=== PATIENT | male | born 1970 | race Caucasian/White ===

== ENCOUNTER 2020-07-29 09:56 | Outpatient (REF) | payer OTHER, SELFPAY | END 2020-07-29 09:57 | disposition home or self-care (01) | LOC: HO.LAB 09:56 | PROVIDERS: Visit Provider Internal Medicine | DX: Z20.828 Contact with and (suspected) exposure to other viral communicable diseases (principal) | CPT/HCPCS: C9803; U0003 ==

== ENCOUNTER 2020-08-17 13:01 | Outpatient (REF) | payer OTHER, SELFPAY | END 2020-08-17 13:02 | disposition home or self-care (01) | LOC: HO.LAB 13:01 | PROVIDERS: Visit Provider Internal Medicine | DX: Z20.828 Contact with and (suspected) exposure to other viral communicable diseases (principal) | CPT/HCPCS: 36415; C9803; U0003 ==

== ENCOUNTER 2020-08-31 09:58 | Outpatient (REF) | payer OTHER, SELFPAY | END 2020-08-31 09:59 | disposition home or self-care (01) | LOC: HO.LAB 09:58 | PROVIDERS: PCP Internal Medicine Geriatric Medicine; Visit Provider Internal Medicine | DX: Z20.822 Contact with and (suspected) exposure to COVID-19 (principal) | CPT/HCPCS: 36415; C9803; U0003 ==

== ENCOUNTER 2020-09-15 16:08 | Outpatient (REF) | payer OTHER, SELFPAY | END 2020-09-15 16:09 | disposition home or self-care (01) | LOC: HO.LAB 16:08 | PROVIDERS: Visit Provider Internal Medicine | DX: Z20.822 Contact with and (suspected) exposure to COVID-19 (principal) | CPT/HCPCS: 36415; C9803; U0003; U0005 ==

== ENCOUNTER 2020-09-28 08:19 | Outpatient (REF) | payer OTHER, SELFPAY | END 2020-09-28 08:20 | disposition home or self-care (01) | LOC: HO.LAB 08:19 | PROVIDERS: Visit Provider Internal Medicine | DX: Z20.822 Contact with and (suspected) exposure to COVID-19 (principal) | CPT/HCPCS: 36415; C9803; U0003; U0005 ==

== ENCOUNTER 2021-09-15 08:09 | Outpatient (REF) | payer MEDICAID, SELFPAY ==
--- NOTE | ~2021-09-15 | XR_ITS ---
EXAMINATION: XR SHOULDER, LEFT CLINICAL INFORMATION: Left shoulder pain COMPARISON: None TECHNIQUE: Left shoulder is imaged in 4 views. FINDINGS: There is no fracture or dislocation or destructive process. The glenohumeral joint appears normal. The acromioclavicular alignment is normal. There are no visible rotator cuff calcifications. XR/XR shoulder LT min 2V IMPRESSION: Unremarkable left shoulder.
== END 2021-09-15 08:10 | disposition home or self-care (01) ==
LOC: HO.XRAY 08:09
PROVIDERS: Absent Provider Internal Medicine Geriatric Medicine; PCP Internal Medicine Geriatric Medicine; Visit Provider Nurse Practitioner
DX: M25.512 Pain in left shoulder (principal)
CPT/HCPCS: 73030

== ENCOUNTER 2021-12-21 09:14 | Outpatient (REF) | payer MEDICAID, SELFPAY ==
[2021-12-21 10:49] LABS: MANUAL DIFF FLAG NO
[2021-12-21 10:59] LABS: Basophils Absolute Auto 0.1 X10*3/uL (0.0-0.2); Basophils Percent Auto 1.2 % (0-2); Eosinophils Absolute Auto 0.2 X10*3/uL (0.0-0.4); Eosinophils Percent Auto 2.4 % (0-4); Hematocrit 40.4 % (42.0-52.0); Hemoglobin 13.4 g/dl (14.0-18.0); Imm Gran Abs Auto 0.02 X10*3/uL (0.00-0.03); Imm Gran Pct Auto 0.3 % (0.0-0.4); Lymphocytes Absolute Auto 1.3 X10*3/uL (1.2-4.9); Lymphocytes Percent Auto 19.1 % (20-40); Mean Corpuscular HGB Conc 33.2 g/dl (31.0-36.0); Mean Corpuscular Hemoglobin 28.7 pg (27.0-33.0); Mean Corpuscular Volume 86.5 fL (80.0-98.0); Mean Platelet Volume 9.1 fL (9.4-12.4); Monocytes Absolute Auto 0.6 X10*3/uL (0.1-1.2); Monocytes Percent Auto 8.2 % (2-11); Neutrophils Absolute Auto 4.6 x10*3/uL (2.0-8.3); Neutrophils Percent Auto 68.8 % (45-73); Platelet Count 266 X10*3/uL (160-400); Red Blood Count 4.67 X10*6/uL (4.60-5.80); Red Cell Distribution Width 12.1 % (11.0-16.0); White Blood Count 6.7 X10*3/uL (4.8-10.8)
[2021-12-21 11:20] LABS: Alanine Aminotransferase 57 U/L (0-40); Albumin Level 4.5 g/dL (3.5-5.0); Alkaline Phosphatase 51 U/L (39-117); Anion Gap 11 (12-20); Aspartate Amino Transferase 58 U/L (5-37); Bilirubin Total 1.1 mg/dL (0.0-1.0); Blood Urea Nitrogen 15 mg/dL (9-16); Carbon Dioxide 26 mmol/L (22-29); Chloride 104 mmol/L (96-108); Estimated Glomerular Filt Rate > 60; Glucose Random 112 mg/dL (60-115); Sodium 137 mmol/L (135-145); Total Protein 7.5 g/dL (6.5-8.0)
== END 2021-12-21 09:15 | disposition home or self-care (01) ==
LOC: HO.LAB 09:14
PROVIDERS: PCP Internal Medicine Geriatric Medicine; Referring Provider Internal Medicine Geriatric Medicine; Visit Provider Nurse Practitioner
DX: Z01.818 Encounter for other preprocedural examination (principal)
CPT/HCPCS: 36415; 80053; 85025; 99202

== ENCOUNTER → 2022-03-25 15:18 | Outpatient (REF) | payer MEDICAID, SELFPAY | LOC: HO.CARD 15:18 | PROVIDERS: Visit Provider Internal Medicine | DX: R00.0 Tachycardia, unspecified (principal); R00.2 Palpitations; I10 Essential (primary) hypertension; E78.5 Hyperlipidemia, unspecified; Z79.899 Other long term (current) drug therapy | CPT/HCPCS: 93005; 99202 ==

== ENCOUNTER → 2022-05-10 10:28 | Outpatient (REF) | payer MEDICAID, SELFPAY ==
--- NOTE | 2022-05-10 10:30 | HM_ITS ---
* Total monitoring time 3 days. * Underlying rhythm is sinus. Average ventricular rate 72/Min. Range 44 to 121/Min. * No atrial fibrillation or flutter or AV blocks or pauses. * Very rare supraventricular and ventricular ectopy with minimal burden. * No patient diary. MTDD
--- NOTE | 2022-05-10 10:30 | CA_ITS ---
Transthoracic Echocardiogram Patient (Last, First, Middle): Stephon Landry, Gender: Male Date of : 1970 Age: 51 Procedure Date: 05/10/2022 Procedure Type: Transthoracic Echocardiogram Location: OP Height: 190.5 cm Weight: 95.26 kg BSA: 2.24 m2 Heart Rate: 74 bpm BP: 135 / 90 mmHg Double Reamer Operator: NAOMY Referring MD: Fazal Campbell MD Symptoms: R00.0 - Tachycardia, unspecified Study Quality: Adequate ECG Rhythm: Sinus Conclusions: - Normal left ventricular size and systolic function. There is mildly increased left ventricular wall thickness. The visually estimated ejection fraction is between 55-60%. - Diastolic function is normal for age. - Normal right ventricular cavity size and systolic function. Findings Left Ventricle Normal left ventricular size and systolic function. There is mildly increased left ventricular wall thickness. The visually estimated ejection fraction is between 55-60%. There is no evidence of regional wall motion abnormalities. Diastolic function is normal for age. Right Ventricle Normal right ventricular cavity size and systolic function. Atria Both atria are normal in size. Aortic Valve Normal aortic valve structure and function. There is no aortic valve stenosis. There is no aortic valve regurgitation. Mitral Valve There is mild mitral annular calcification. There is no mitral valve regurgitation. There is no mitral valve stenosis. Pulmonic Valve Normal pulmonic valve structure and function. There is trace pulmonic valve regurgitation. Tricuspid Valve Normal tricuspid valve structure and function. There is no tricuspid valve regurgitation. Normal right atrial pressure. There is no evidence of pulmonary hypertension. Great Vessels All visible segments of the aorta are normal in size. The visualized portions of the pulmonary artery and branches are normal. Venous The inferior vena cava is normal in size and collapses greater than 50% with inspiration. Pericardium/Pleural Normal pericardial structure. There is no evidence of pericardial effusion. Prior Study Comparison No prior study available for comparison. Measurements 2D Linear Measurements IVSd: 1.23 0.6-0.9/0.6-1.0 cm LVIDd: 4.44 3.9-5.3/4.2-5.9 cm LVIDd Index: 1.98 2.4-3.2/2.2-3.1 cm/m2 LVIDs: 3.35 2.0-3.6 cm LVPWd: 1.14 0.7-1.1 cm LA Diam: 3.70 2.7-3.8/3.0-4.0 cm LAIDs Index: 1.65 1.5-2.3 cm/m2 LV Mass: 237.42 67-162/88-224 g LV Mass Index: 105.99 43-95/49-115 g/m2 LVOT Diam: 2.30 3.0+(-)1.3 cm 2D Systolic Function EF 4C: 59.90 >55% EF 2C: 52.90 >55% EF BiP: 56.70 >55% Mitral Valve MV Pk E: 0.74 MV PK A: 0.78 MV Decel Time: 229.00 E/A: 0.90 E'Lateral: 12.50 E'Medial: 7.51 E/E' Med: 9.80 E/E' Lat: 5.90 PHT: 67.00 MVA PHT: 3.28 Decel [place]: 3.21 Aortic Valve AoV Pk Logan: 1.17 AoV Mn Logan: 0.83 AoV VTI: 0.22 AoV Pk Grad: 5.00 Aov Mn Grad: 3.00 STEVE Cont.VTI: 3.94 LVOT LVOT Pk Logan: 1.23 LVOT Mn Logan: 0.78 LVOT VTI: 0.21 LVOT Pk Grad: 6.00 LVOT Mn Grad: 3.00 LVOT Diam: 2.30 LVOT Area: 4.15 Diastolic Function MV Pk E: 0.74 MV Pk A: 0.78 E/A: 0.90 E'Medial: 7.51 E/E' Med: 9.80 E' Laterial: 12.50 E/E' Lat: 5.90 Right Ventricle TAPSE (mm): 19.40 TVS' Logan: 11.70 Tricuspid Valve TR Pk Logan: 1.89 TR Pk Grad: 14.00 RA Press: 3.00 RVSP: 17.00 Great Vessels Aorta Sinus of Valsalva: 3.60 2.0-3.5 cm Ao Asc: 3.30 2.1-3.4 cm Pulmonary Valve PV Pk Logan: 1.11 Peak PV Grad: 5.00 Updated in Other Vendor System with Status of Final Yaya Kumar MD electronically signed on 05/10/2022 8:06:29 PM with status of Final
== END ==
LOC: HO.CARD 10:28
PROVIDERS: Visit Provider Internal Medicine
DX: R00.0 Tachycardia, unspecified (principal); R00.2 Palpitations
CPT/HCPCS: 93242; 93306

== ENCOUNTER → 2022-07-03 14:53 | Outpatient (BNVA) | payer MEDICAID, SELFPAY | PROVIDERS: PCP Internal Medicine Geriatric Medicine; Referring Provider Internal Medicine Geriatric Medicine; Visit Provider Nurse Practitioner Family | DX: R00.2 Palpitations (principal); R00.0 Tachycardia, unspecified | CPT/HCPCS: 99212 ==

== ENCOUNTER 2023-06-06 08:20 | Outpatient (REF) | payer MEDICAID, SELFPAY ==
[2023-06-06 12:13] LABS: Alanine Aminotransferase 40 U/L (0-40); Albumin Level 4.2 g/dL (3.5-5.0); Alkaline Phosphatase 44 U/L (39-117); Anion Gap 13 (12-20); Aspartate Amino Transferase 32 U/L (5-37); Bilirubin Total 0.8 mg/dL (0.0-1.0); Blood Urea Nitrogen 21 mg/dL (9-16); Calcium 9.3 mg/dL (8.4-10.2); Carbon Dioxide 25 mmol/L (22-29); Chloride 104 mmol/L (96-108); Cholesterol 231 mg/dL (<200); Estimated Glomerular Filt Rate > 60; Glucose Random 105 mg/dL (60-115); HDL Cholesterol 48 mg/dL (>40); LDL Cholesterol Calculated 154 mg/dL (<100); Potassium 3.8 mmol/L (3.3-5.1); Sodium 138 mmol/L (135-145); Total Protein 7.1 g/dL (6.5-8.0); Triglycerides 146 mg/dL (<150)
== END 2023-06-06 08:21 | disposition home or self-care (01) ==
LOC: HO.HHCL 08:20
PROVIDERS: Visit Provider Internal Medicine Geriatric Medicine
DX: I10 Essential (primary) hypertension (principal); E78.00 Pure hypercholesterolemia, unspecified
CPT/HCPCS: 36415; 80053; 80061

== ENCOUNTER 2024-07-13 07:58 | Outpatient (REF) | payer MEDICAID, SELFPAY ==
[2024-07-13 11:14] LABS: MANUAL DIFF FLAG NO
[2024-07-13 11:17] LABS: Basophils Absolute Auto 0.1 X10*3/uL (0.0-0.2); Basophils Percent Auto 1.7 % (0-2); Eosinophils Absolute Auto 0.5 X10*3/uL (0.0-0.4); Eosinophils Percent Auto 8.1 % (0-4); Hematocrit 44.8 % (42.0-52.0); Hemoglobin 14.2 g/dl (14.0-18.0); Imm Gran Abs Auto 0.02 X10*3/uL (0.00-0.03); Imm Gran Pct Auto 0.3 % (0.0-0.4); Lymphocytes Absolute Auto 1.8 X10*3/uL (1.2-4.9); Lymphocytes Percent Auto 30.2 % (20-40); Mean Corpuscular HGB Conc 31.7 g/dl (31.0-36.0); Mean Corpuscular Hemoglobin 28.6 pg (27.0-33.0); Mean Corpuscular Volume 90.3 fL (80.0-98.0); Monocytes Absolute Auto 0.5 X10*3/uL (0.1-1.2); Monocytes Percent Auto 7.6 % (2-11); Neutrophils Absolute Auto 3.1 x10*3/uL (2.0-8.3); Neutrophils Percent Auto 52.1 % (45-73); Platelet Count 289 X10*3/uL (160-400); Red Blood Count 4.96 X10*6/uL (4.60-5.80); Red Cell Distribution Width 12.4 % (11.0-16.0)
[2024-07-13 11:42] LABS: Alanine Aminotransferase 56 U/L (0-40); Albumin Level 4.6 g/dL (3.5-5.0); Anion Gap 12 (12-20); Aspartate Amino Transferase 48 U/L (5-37); Bilirubin Total 0.7 mg/dL (0.0-1.0); Blood Urea Nitrogen 16 mg/dL (9-16); Calcium 9.7 mg/dL (8.4-10.2); Carbon Dioxide 28 mmol/L (22-29); Chloride 104 mmol/L (96-108); Cholesterol 220 mg/dL (<200); Estimated Glomerular Filt Rate > 60; Glucose Random 105 mg/dL (60-115); HDL Cholesterol 50 mg/dL (>40); LDL Cholesterol Calculated 126 mg/dL (<100); Potassium 4.2 mmol/L (3.3-5.1); Sodium 140 mmol/L (135-145); Total Protein 7.6 g/dL (6.5-8.0); Triglycerides 224 mg/dL (<150)
[2024-07-13 12:01] LABS: Prostate Specific Antigen 0.45 ng/mL (<0.05-4.0)
[2024-07-13 12:31] LABS: Alkaline Phosphatase 53 U/L (39-117)
== END 2024-07-13 07:59 | disposition home or self-care (01) ==
LOC: HO.HHCL 07:58
PROVIDERS: Visit Provider Internal Medicine Geriatric Medicine
DX: Z00.00 Encounter for general adult medical examination without abnormal findings (principal); Z12.5 Encounter for screening for malignant neoplasm of prostate; E78.00 Pure hypercholesterolemia, unspecified
CPT/HCPCS: 36415; 80053; 80061; 84153; 85025

== ENCOUNTER 2024-12-03 13:17 | Outpatient (AMB) | payer OTHER, SELFPAY ==
--- NOTE | 2024-12-03 13:19 | MHC.OFFVIS ---
Vital Signs 12/03/24 13:31 Height 6 ft 2.5 in Weight 218 lb 4.122 oz BMI 27.6 BP 140/83 H Blood Pressure Location Lt brachial Position Sitting Pulse 69 Intake Visit Reasons: pre colonoscopy Intake Note: Stephon returns to office today for pre colonoscopy visit. CC: Patient denies having any GI symptoms today. Magento Developer Required: No Accompanied by: Self / Same As Patient Allergies No Known Allergies Allergy (Verified 12/03/24 13:46) HPI HPI pre colonoscopy: Details: 51-year-old male here for preprocedural meeting to discuss a screening colonoscopy. He is referred by Blanco Mon MD of [facility]. PMX Hypertension Erectile dysfunction High cholesterol * SURGICAL HISTORY epidiymal cyst Fx finger repair shoulder surgery * ALLERGIES: NKDA * [facility] LABS: Laboratory Tests 07/13/24 08:01 WBC 6.0 Hgb 14.2 Hct 44.8 Plt Count 289 Estimated GFR > 60 Total Bilirubin 0.7 AST 48 H ALT 56 H Alkaline Phosphatase 53 TODAY'S VISIT this is his first colonoscopy. No bowel or upper GI problems. There are no prior problems with anesthesia or sedation. No ID problems He denies cardiac or respiratory problems. No known FHX of crc or polyps. [facility] Medical History History of tachycardia HTN (hypertension) Surgical History History of removal of cyst Hx of fracture of finger Hx of shoulder surgery Family History Mother Diabetes HTN (hypertension) Father HTN (hypertension) Diabetes Maternal Uncle Prostate cancer Paternal Grandfather Prostate cancer Social History Household Members: Spouse Alcohol intake: current Alcohol intake frequency: holidays/special occasions only Patient Tobacco Use Status: Never used Tobacco Substance Use Type: Marijuana Review of Systems Const Denies fatigue, Denies fever(s), Denies night sweats, Denies poor appetite and Denies weight loss ENT Reports Normal hearing present, Denies dental pain, Denies dysphagia, Denies hearing loss, Denies mouth pain, Denies odynophagia, Denies throat swelling, Denies tongue swelling and Reports other (Dentition adequate) Card Reports no additional complaints Resp Reports no additional complaints GI Details: Denies abdominal pain, Denies melena, Denies bloating, Denies hematochezia, Denies constipation, Denies GI cramping, Denies dysphagia, Denies excessive flatus, Denies early satiety, Denies heartburn, Denies diarrhea, Denies nausea, Denies odynophagia, Denies vomiting and Denies hematemesis Skin/Breast Denies pruritus, Denies lesions, Denies rash and Denies jaundice Neuro Reports Normal hearing present and Denies Abnormal speech present Endo Denies fatigue Aller/Immun Denies throat swelling and Denies tongue swelling Physical Exam Vital Signs: Last Vital Signs Pulse 69 12/03/24 13:31 BP 140/83 H 12/03/24 13:31 BMI result Body Mass Index 27.6 Const General: cooperative, no acute distress, well developed and well groomed Nutritional Appearance: average body habitus and well nourished Orientation/consciousness: oriented to person, oriented to place and oriented to time Limitations: No language barrier HEENT Head: Yes normocephalic and Yes atraumatic Eyes General: appearance normal, both eyes and all related structures Pupils: Equal, round and reactive pupils present Neck Neck: Yes normal visual inspection and Yes no lymphadenopathy Thyroid: Thyroid normal Resp Effort & Inspection: normal respiratory effort and able to speak in complete sentences Auscultation: clear to auscultation bilaterally Cardio Rate: regular rate Rhythm: regular rhythm Heart sounds: Normal, physiologic split S2 sound present Peripheral pulses: radial pulses present and posterior tibial pulses present GI Inspection: No distended and No Abdominal panniculus present Palpation (GI): Soft to palpation, nontender, no guarding, not rigid and No hepatosplenomegaly present Percussion: Yes normal to percussion Auscultation: normal bowel sounds Rectal Exam - Male: Yes deferred Skin General skin exam: no rashes or lesions noted, turgor normal, skin not dry, no jaundice, No spider nevi and no striae Rashes: no rashes Nails: normal Neuro General: oriented to person, oriented to place and oriented to time Cranial nerves: Yes Equal, round and reactive pupils present and Yes Normal hearing present Speech: No Abnormal speech present Extrem General: Yes normal to inspection, No clubbing, No cyanosis and No edema Psych Appearance: grossly normal and well kempt Mental Status: mental status grossly normal Speech and movement: Normal speech and movement present Affect: normal affect Attitude: cooperative Thought process: Normal thought process present and not confabulating Thought content: Normal thought content present Insight: Fair insight present (Psych) Judgement: Fair judgement present (Psych) Assessment & Plan Assessment & Plan (1) Pre-op examination: Code(s): Z01.818 - Encounter for other preprocedural examination Category: Medical Plan this is his first colonoscopy. No bowel or upper GI problems. There are no prior problems with anesthesia or sedation. No ID problems He denies cardiac or respiratory problems. No known FHX of crc or polyps. Orders: Orders Colonoscopy - GI Use Only Today Z01.818 - Encounter for other preprocedural examination Medications: New peg 3350-electrolytes 236-22.74-6.74 -5.86 gram (Golytely) until fecal effluent is clear; do not exceed a total volume of 2,000 mL 240 mL PO Q10M 4,000 mL 0RF 1 day Z12.11 - Encounter for screening for malignant neoplasm of colon bisacodyl (Dulcolax (bisacodyl)) 10 mg (2 x 5 mg) PO BEDTIME 4 tabs 0RF 2 days Coding Level of Care Code New Pt Level 3 (59288) Diagnoses Pre-op examination Z01.818
[2024-12-03 13:31] VITALS: BP 140/83; PULSE 69; BMI 27.6
--- OUTSIDE RECORDS SUMMARY | 2024-12-03 13:59 | XMS_ITS | Encounter Summary ---
Author Organization [employer] Address [address] [place] [address] Care Team Providers Care Product Design Engineer Name Role Phone Name, Blanco [facility] Primary Care Provider [phone] Reason for Visit * Reason Comments Med Refill Encounter Details Date Type Department Care Team ([facility] st Contact Info) Description 10/25/[address] [facility] MEDICINE [address] [place], [place] [phone] Abimael Cervantes MD [address] [place] [address] Tinea manuum; Tinea pedis of both feet; Onychomycosis Social History Tobacco Use Types Packs/Day Years Used Date Smoking Tobacco: Never Alcohol Use Standard Drinks/Week Comments Yes 14 (1 standard drink = 0.6 oz pu re alcohol) Depression Answer Date Recorded Patient Health Questionnaire-9 Score 0 06/02/2023 Patient Health Questionnaire-9 Score 0 06/02/2023 Last PHQ-9: Questionnaire Data Not on file 1 Housing Stability Answer Date Recorded What is your housing situation today? I have magalieromulo baez 05/27/[address] you li ve. Do you have problems with any of the following? None of the above 05/27/2023 Food Insecurity Answer Date Recorded Within the past 12 months, y ou worried that your food would run out before you got money to buy more: Never True 05/27/2023 Within the past 12 months,th e food you bought just didn't last and you didn't have enough money to get more: Never True Transportation Answer Date Recorded In the past 12 months, has l ack of transportation kept you from medical appts, meetings, work or from getting things needed for daily living? No 05/27/2023 Utilities Answer Date Recorded In the past 12 months, has t he electric, gas, oil or water company threatened to shut off services in your home? No 05/27/2023 Depression Answer Date Recorded Patient Health Questionnaire-2 Score 0 06/02/2023 Sex and Gender Information Value Date Recorded Sex Assigned at Male 06/10/2022 10:31 AM EDT Legal Sex Male 10:31 AM EDT Gender Identity Male 06/10/2022 10:31 AM EDT Sexual Orientation Straight 06/10/2022 10 :31 AM EDT documented as of this encounter Plan of Treatment Upcoming Encounters Date Type Department Care Team (Late st Contact Info) Description 12/21/2024 10:45 AM EDT Office Visit [facility] MEDICINE [address] [place] [address] Name, MD Blanco [address] [place] [address] documented as of this encounter Visit Diagnoses Diagnosis Tinea manuum Dermatophytosis of hand Tinea pedis of both feet Onychomycosis Dermatophytosis of nail documented in this encounter Additional Health Concerns Assessment Noted Time PHQ-9 Depression Total Score: 0 06/02/20 23 3:09 PM EDT documented as of this encounter Care Teams Product Design Engineer Relationship Specialty Start Date End Date Name, MD Blanco [address] [place] [id number] PCP - General Family Medicine 08/11/18 documented as of this encounter
--- OUTSIDE RECORDS SUMMARY | 2024-12-03 13:59 | XMS_ITS | Encounter Summary ---
Author Organization [employer] Address [address] [place] [address] Care Team Providers Care Instructional Services Librarian Name Role Phone Name, Blanco [facility] Primary Care Provider [phone] Encounter Details Date Type Department Care Team (Late st Contact Info) Description 10/16/2022 Orders Only [facility] MED & PEDS [address] [place] [address] Lelia Dunbar LPN Social History Tobacco Use Types Packs/Day Years Used Date Smoking Tobacco: Never Assessed Sex and Gender Information Value Date Recorded Sex Assigned at Male 06/10/2022 10:31 AM EDT Legal Sex Male 10:31 AM EDT Gender Identity Male 06/10/2022 10:31 AM EDT Sexual Orientation Straight 06/10/2022 10 :31 AM EDT documented as of this encounter Plan of Treatment Upcoming Encounters Date Type Department Care Team (Late st Contact Info) Description 12/21/2024 10:45 AM EDT Office Visit [facility] MEDICINE [address] [place] [address] Blanco Mon MD [address] [place] [address] documented as of this encounter Visit Diagnoses Not on filedocumented in this encounter Care Teams Instructional Services Librarian Relationship Specialty Start Date End Date Blanco Mon MD [address] [place] [address] PCP - General Family Medicine 08/11/18 documented as of this encounter
--- OUTSIDE RECORDS SUMMARY | 2024-12-03 13:59 | XMS_ITS | Clinical Summary ---
Author Organization [employer] Address [address] [place] [address] Care Team Providers Care Blood Collector Name Role Phone Name, Blanco [facility] Primary Care Provider [phone] Allergies No known active allergies Medications pravastatin (Pravachol) 20 MG tablet Take 1 tablet (20 mg) by mouth Once per day. 30 tablet 11 4 07/12/20 25 Active Viagra 50 MG tablet TAKE 1 TABLET 1 HOUR BEFORE SEXUAL RELATIONS ONCE DAILY NEEDED. 10 tablet 3 5 Active Active Problems Problem Noted Date Diagnosed Date High cholesterol 06/11/2023 Erectile dysfunction 12/03/2017 05/29/2023 Essential hypertension 09/01/2017 3 Encounters Date Type Department Care Team Description 10/26/2024 Refill [facility] MEDICINE [address] [place] [address] Name, MD Blanco from Last 3 Months Immunizations Name Administration Dates Next Due Influenza injectable quadriv alent IIV4 with preservative 10/07/2017 Influenza injectable quadrivalent preservative f ree 07/24/2021 Tdap 03/03/2017 Zoster, Recombinant 01/16/2022,10/27/2021 Social History Tobacco Use Types Packs/Day Years Used Date Smoking Tobacco: Never Tobacco Cessation:Counseling Given: Not Answered Alcohol Use Standard Drinks/Week Comments Yes 14 (1 standard drink = 0.6 oz pu re alcohol) Depression Answer Date Recorded Patient Health Questionnaire-9 Score 0 07/12/2024 Patient Health Questionnaire-9 Score 0 07/12/2024 Last PHQ-9: Questionnaire Data Not on file 1 09/12/2023 Housing Stability Answer Date Recorded What is your housing situation today? I have magalie baez 06/30/[address] you li ve. Do you have problems with any of the following? None of the above 06/30/2024 Food Insecurity Answer Date Recorded Within the past 12 months, y ou worried that your food would run out before you got money to buy more: Never True 06/30/2024 Within the past 12 months,th e food you bought just didn't last and you didn't have enough money to get more: Never True Transportation Answer Date Recorded In the past 12 months, has l ack of transportation kept you from medical appts, meetings, work or from getting things needed for daily living? No 06/30/2024 Utilities Answer Date Recorded In the past 12 months, has t he electric, gas, oil or water company threatened to shut off services in your home? No 06/30/2024 Depression Answer Date Recorded Patient Health Questionnaire-2 Score 0 07/12/2024 Internet Access Answer Date Recorded Internet Access Q1 Yes 06/30/2024 Internet Access Q2 Not on file 06/30/2024 Sex and Gender Information Value Date Recorded Sex Assigned at Male 06/10/2022 10:31 AM EDT Legal Sex Male 10:31 AM EDT Gender Identity Male 06/10/2022 10:31 AM EDT Sexual Orientation Straight 06/10/2022 10 :31 AM EDT Last Filed Vital Signs Vital Sign Reading Time Taken Comments Blood Pressure 148/95 07/12/2024 10:22 AM EST Pulse 81 07/12/2024 10:22 AM EST Temperature 36.8 ??C (98.2 ??F) 07/12/2024 10:[address] Respiratory Rate 20 07/12/2024 10:22 AM EST Oxygen Saturation 99% 07/12/2024 10:22 AM EST Inhaled Oxygen Concentration - - Weight 102 kg (224 lb 6.4 oz) 07/12/2024 10:22 A M EST Height 188 cm (6' 2 ) 07/12/2024 10:22 AM EST Body Mass Index 28.81 07/12/2024 10:22 AM EST Plan of Treatment Upcoming Encounters Date Type Department Care Team (Late st Contact Info) Description 12/21/2024 10:45 AM EDT Office Visit [facility] MEDICINE [address] [place] [address] Name, MD Blanco [address] [facility] [place] [address] Health Maintenance Due Date Last Done Comments CT Colonography 1970 Colonoscopy 1970 Colorectal Cancer Screening 1970 FIT DNA/Cologuard 1970 FIT 1970 FOBT 1970 HIV Screening 1970 Sigmoidoscopy 1970 Hepatitis C Screening 1989 Hepatitis B Vaccines (1 of 3 - 19+ 3-dose series) 1990 Pneumococcal Vaccine: 50+ Years (1 of 1 - PCV) 2021 COVID-19 Vaccine ( - 2023-2 5 season) 2024 Influenza Vaccine (#1) 2024 , 10/07/2017 Alcohol/Substance Use Screening 07/12/2025 07/12/2024 Depression Screening 07/12/2025 07/12/2024, 07/12/2024 SDOH Screening 07/12/2025 07/12/2024 Tobacco Screening 07/12/2025 07/12/2024 DTaP/Tdap/Td Vaccines (2 - T d or Tdap) 03/03/2027 03/03/2017 Lipid Panel 07/13/2029 07/13/2024, 06/06/2023, 11/07/2021 RSV Patients and Patients Aged 60 years or older (1 - 1-dose 75+ series) 2046 Zoster Vaccines Completed 01/16/2022, 10/27/2021 HIB Vaccines Aged Out No longer eligi ble based on patient's age to complete this topic HPV Vaccines Aged Out No longer eligi ble based on patient's age to complete this topic Hepatitis A Vaccines Aged Out No long er eligible based on patient's age to complete this topic IPV Vaccines Aged Out No longer eligi ble based on patient's age to complete this topic Meningococcal Vaccine Aged Out No marizol alexis eligible based on patient's age to complete this topic RSV under 20 months Aged Out No longe r eligible based on patient's age to complete this topic Rotavirus Vaccines Aged Out No longer eligible based on patient's age to complete this topic Procedures Procedure Name Priority Date/Time Associated Diagnosis Comments LIPID PANEL, STANDARD Routine 07/13/2024 8:01 AM EST High cholesterol from Last 3 Months or Most Recently Relevant to Health Maintenance Results * (ABNORMAL) Lipid Panel, Standard (07/13/2024 8:01 AM EST) Triglycerides 224(H) <150 mg/dL [facility] Comment:Desirable Triglyceri de: less than 150 mg/dLBorderline High Triglyceride 150-199 mg/dLHigh Triglyceride: 200-499 mg/dLVery High Triglyceride: greater than or equal to 5OO mg/dL Cholesterol 220(H) <200 mg/dL [facility] Comment:Desirable Cholestero l: less than 200 mg/dLBorderline High Cholesterol: 200-239 mg/dLHigh Cholesterol: greater than 239 mg/dL LDL Cholesterol Calculated 126(H) <100 mg/dL [facility] Comment:Desirable LDL: less than 100 mg/dLNear Optimal/Above Optimal LDL: 110- 129 mg/dLBorderline High LDL: 130-159 mg/dLHigh LDL: 160-189 mg/dLVery High LDL: greater than or equal to 190 mg/dL HDL Cholesterol 50 >40 mg/dL [facility] Comment:Desirable HDL: great er than 40 mg/dL Note: This HDL assay may give artificially low results in patients with liver disease. Blood Venous blood specimen / Unknown 07/13/2024 8:01 AM EST 07/13/2024 11:08 AM EST us Blanco Name MD LAB BLOOD ORDERABLES Final Resul t [facility] [address] [place] [address] [phone] from Last 3 Months or Most Recently Relevant to Health Maintenance Insurance [employer] Care Teams Blood Collector Relationship Specialty Start Date End Date Name, MD Blanco [address] [place] [id number] PCP - General Family Medicine 08/11/18
== END 2024-12-03 14:38 | disposition home or self-care (01) ==
PROVIDERS: PCP Internal Medicine Geriatric Medicine; Visit Provider Nurse Practitioner
DX: Z01.818 Encounter for other preprocedural examination (principal); Z12.11 Encounter for screening for malignant neoplasm of colon
CPT/HCPCS: S0285

== ENCOUNTER 2024-12-24 07:56 | Outpatient (REF) | payer OTHER, SELFPAY ==
--- OUTSIDE RECORDS SUMMARY | 2024-12-24 08:00 | XMS_ITS | Clinical Summary ---
Author Organization [employer] Address [address] [facility] 7t [place] [address] Care Team Providers Care Rubber Trimmer Name Role Phone NameBlanco MD Primary Care Provider [phone] Allergies No known active allergies Medications pravastatin [...] Encounters Date Type Department Care Team Description 12/21/2024 10:45 AM EDT Office Visit [facility] [address] [place] [phone] Blanco Mon MD High cholesterol (Primary Dx); Transaminitis 12/21/2024 Travel 12/20/2024 Telephone [facility] [address] [place] [address] Blanco Mon MD CHART PREP 10/26/2024 Refill [facility] [address] [place] [address] Blanco Mon MD from Last 3 Months Immunizations Immunization Administration Dates Next Due Influenza injectable quadriv [...] Sign Reading Time Taken Comments Blood Pressure 132/86 12/21/2024 10:37 AM EDT Pulse 88 12/21/2024 11:06 AM EDT Temperature 36.6 ??C (97.8 ??F) 12/21/2024 10:37 AM E DT Respiratory Rate 18 12/21/2024 10:37 AM EDT Oxygen Saturation 98% 12/21/2024 10:37 AM EDT Inhaled Oxygen Concentration - - Weight 101 kg (222 lb 3.2 oz) 12/21/2024 10:37 A M EDT Height 188 cm (6' 2 ) 12/21/2024 10:37 AM EDT Body Mass Index 28.53 12/21/2024 10:37 AM EDT Plan of Treatment Health Maintenance Due Date Last Done Comments [...] 07/12/2024 SDOH Screening 07/12/2025 07/12/2024 Tobacco Screening 12/21/2025 12/21/2024 DTaP/Tdap/Td Vaccines (2 - T d or [...] patient's age to complete this topic Meningococcal B Vaccine Aged Out No l onger eligible based on patient's age to complete [...] 8:01 AM EST) Triglycerides 224(H) <150 mg/dL [facility] Comment:Desirable Triglyceri de: less than 150 mg/dLBorderline High Triglyceride 150-199 mg/dLHigh Triglyceride: 200-499 mg/dLVery High Triglyceride: greater than or equal to 5OO mg/dL Cholesterol 220(H) <200 mg/dL [facility] Comment:Desirable Cholestero l: less than 200 mg/dLBorderline High Cholesterol: 200-239 mg/dLHigh Cholesterol: greater than 239 mg/dL LDL Cholesterol Calculated 126(H) <100 mg/dL [facility] Comment:Desirable LDL: less than 100 mg/dLNear Optimal/Above Optimal LDL: 110- 129 mg/dLBorderline High LDL: 130-159 mg/dLHigh LDL: 160-189 mg/dLVery High LDL: greater than or equal to 190 mg/dL HDL Cholesterol 50 >40 mg/dL [facility] Comment:Desirable HDL: great er than 40 mg/dL Note: This HDL assay may give artificially low results in patients with liver disease. Blood Venous blood specimen / Unknown 07/13/2024 8:01 AM EST 07/13/2024 11:08 AM EST us Blanco Name LAB BLOOD ORDERABLES Final Resul t [facility] [address] [place] [phone] from Last 3 Months or Most Recently Relevant to Health Maintenance Insurance [employer] Care Teams Rubber Trimmer Relationship Specialty Start Date End Date Name, MD Blanco [address] [place] [id number] PCP - General Family Medicine 08/11/18
--- OUTSIDE RECORDS SUMMARY | 2024-12-24 08:00 | XMS_ITS | Encounter Summary ---
Author Organization [employer] Address [address] [facility] 7[address] [place] [address] Care Team Providers Care Assurance Associate Name Role Phone Name, Blanco [facility] Primary Care Provider [phone] Reason for Visit * Reason Comments Med Refill Encounter Details Date Type Department Care Team ([facility] st Contact Info) Description 10/25/2023 Refill [facility] [address] [place], [place] [phone] Abimael Cervantes MD [address] [place], [place] [phone] Tinea manuum; Tinea pedis of both feet; [...] housing situation today? I have magalie baez 05/27/[address] [...] as of this encounter Plan of Treatment Not on file documented as of this encounter Visit Diagnoses Diagnosis Tinea manuum Dermatophytosis of hand Tinea pedis of both feet Onychomycosis Dermatophytosis of nail documented in this encounter Additional Health Concerns Assessment Noted Time PHQ-9 Depression Total Score: 0 06/02/20 23 3:09 PM EDT documented as of this encounter Care Teams Assurance Associate Relationship Specialty Start Date End Date Name, MD Blanco [address] [place] [address] PCP - General Family Medicine 08/11/18 documented as of this encounter
--- OUTSIDE RECORDS SUMMARY | 2024-12-24 08:00 | XMS_ITS | Encounter Summary ---
Author Organization [employer] Address [address] [facility] 7[address] [place] [address] Care Team Providers Care Automotive Machinist Name Role Phone Name, Blanco [facility] Primary Care Provider [phone] Encounter Details Date Type Department Care Team (Latest Contact Info) Description 12/21/2024 Travel Social History Tobacco Use Types Packs/Day Years [...] Diagnoses Not on filedocumented in this encounter Additional Health Concerns Assessment Noted Time PHQ-9 Depression Total Score: 0 07/12/20 24 10:49 AM EST documented as of this encounter Care Teams Automotive Machinist Relationship Specialty Start Date End Date Name, MD Blanco [address] [place] [address] PCP - General Family Medicine 08/11/18 documented as of this encounter
--- OUTSIDE RECORDS SUMMARY | 2024-12-24 08:00 | XMS_ITS | Encounter Summary ---
Author Organization [employer] Address [address] [facility] 7[address] [place] [address] Care Team Providers Care Hoistman Name Role Phone Name, Blanco [facility] Primary Care Provider [phone] Reason for Visit * Reason Onset Date Comments CHART PREP 12/20/2024 Encounter Details Date Type Department Care Team ([facility] st Contact Info) Description 12/20/2024 Telephone [facility] [address] [place], [place] [phone] Name, MD Blanco [address] [place] [address] CHART PREP Social History Tobacco Use Types Packs/Day Years [...] AM EDT documented as of this encounter Miscellaneous Notes * Telephone Encounter - Dany Downey [place] - 12/20/2024 1:51 PM EDT Chart Prep Labs: done from 07/13/24 Images: not applicable Referrals: not applicable Vaccines due: PCV20 and Hep B Screenings: colonoscopy Overdue care gaps: Disability screen and Tobacco documented in this encounter Plan of Treatment Not on file documented as of this encounter Visit Diagnoses Not on filedocumented in this encounter Additional Health Concerns Assessment Noted Time PHQ-9 Depression Total Score: 0 07/12/20 10:49 AM EST documented as of this encounter Care Teams Hoistman Relationship Specialty Start Date End Date Name, MD Blanco [address] [place] [address] PCP - General Family Medicine 08/11/18 documented as of this encounter
--- OUTSIDE RECORDS SUMMARY | 2024-12-24 08:00 | XMS_ITS | Encounter Summary ---
Author Organization [employer] Address [address] [facility] [address] [place] [address] Care Team Providers Care Heavy Equipment Mechanic Name Role Phone Name, Blanco [facility] Primary Care Provider [phone] Encounter Details Date Type Department Care Team (Late st Contact Info) Description 10/16/2022 Orders Only [facility] [address] [place] [address] Lelia Dunbar LPN Social History Tobacco Use [...] on filedocumented in this encounter Care Teams Heavy Equipment Mechanic Relationship Specialty Start Date End Date Name, MD Blanco [address] [place] [id number] PCP - General Family Medicine 08/11/18 documented as of this encounter
--- OUTSIDE RECORDS SUMMARY | 2024-12-24 08:00 | XMS_ITS | Encounter Summary ---
Author Organization [employer] Address [address] [facility] 7t [place] [address] Care Team Providers Care Machine Design Teacher Name Role Phone Name, Blanco [facility] Primary Care Provider [phone] Reason for Visit * Reason Comments Follow-up Encounter Details Date Type Department Care Team ([facility] Contact Info) Description 12/21/2024 10:45 AM EDT Office Visit [facility] [address] [place], [place] [phone] Name, MD Blanco [address] [place] [address] High cholesterol (Primary Dx); Transaminitis Social History Tobacco Use Types Packs/Day Years [...] housing situation today? I have magalieromulo baez 06/30/[address] you [...] AM EDT documented as of this encounter Last Filed Vital Signs Vital Sign Reading [...] Mass Index 28.53 12/21/2024 10:37 AM EDT documented in this encounter Progress Notes * Blanco Mon MD - 12/21/2024 10:45 AM EDT Subjective Patient ID: Stephon Landry is a 54 y.o. male who presents for Follow-up. Patient comes for follow-up visit. His blood pressure remains normal off HCTZ. He continues exercising regularly, he is trying to maintain a healthy diet, he drinks very little alcohol and is checking his blood pressure at home regularly. He continues on statin for primary prevention of cardiovascular disease. I recommended to recheck his fasting labs today. His most recent blood work showed mild transaminitis. Recent PSA is normal. He was seen by GI and he is to have a colonoscopy in the next few months. Review of Systems Constitutional: Negative for chills, fatigue and fever. HENT: Negative for sore throat. Respiratory: Negative for cough, chest tightness and shortness of breath. Cardiovascular: Negative for chest pain, palpitations and leg swelling. Gastrointestinal: Negative for abdominal pain and blood in stool. Visit Vitals BP 132/86 (BP Location: Left arm, Patient Position: Sitting, BP Cuff Size: Adult) Pulse 88 Temp 97.8 ??F (36.6 ??C) (Temporal) Resp 18 Ht 6' 2 (1.88 m) Wt 222 lb 3.2 oz (101 kg) SpO2 98% BMI 28.53 kg/m?? Smoking Status Never BSA 2.3 m?? Objective Physical Exam Constitutional: Appearance: Normal appearance. Cardiovascular: Rate and Rhythm: Normal rate and regular rhythm. Heart sounds: No murmur heard. Pulmonary: Effort: Pulmonary effort is normal. No respiratory distress. Breath sounds: No wheezing, rhonchi or rales. Abdominal: Palpations: Abdomen is soft. Tenderness: There is no abdominal tenderness. Musculoskeletal: Right lower leg: No edema. Left lower leg: No edema. Neurological: Mental Status: He is alert. Assessment/Plan Diagnoses and all orders for this visit: High cholesterol Comments: Continue current dose of statin. Continue current diet and exercise regimen. Check fasting blood work listed below. Orders: - Comprehensive Metabolic Panel; Future - Lipid Panel, Standard; Future Transaminitis - Comprehensive Metabolic Panel; Future - Lipid Panel, Standard; Future documented in this encounter Plan of Treatment Scheduled Orders Name Type Priority Associated Diagnoses Orde r Schedule Comprehensive Metabolic Panel Lab Routine High cholesterol Transaminitis Expected: 12/21/2024 (Approximate), Expires: 12/21/2025 Lipid Panel, Standard Lab Routine High cholesterol Transaminitis Expected: 12/21/2024 (Approximate), Expires: 12/21/2025 documented as of this encounter Visit Diagnoses Diagnosis High cholesterol- Primary Pure hypercholesterolemia Transaminitis Nonspecific elevation of levels of transaminase or lactic acid dehydrogenase (LDH) documented in this encounter Additional Health Concerns Assessment Noted Time PHQ-9 Depression Total Score: 0 07/12/20 24 10:49 AM EST documented as of this encounter Care Teams Machine Design Teacher Relationship Specialty Start Date End Date Name, MD Blanco [address] [place] [address] PCP - General Family Medicine 08/11/18 documented as of this encounter
[2024-12-24 12:10] LABS: Alanine Aminotransferase 32 U/L (0-40); Albumin Level 4.2 g/dL (3.5-5.0); Alkaline Phosphatase 60 U/L (39-117); Anion Gap 12 (12-20); Aspartate Amino Transferase 33 U/L (5-37); Bilirubin Total 0.4 mg/dL (0.0-1.0); Blood Urea Nitrogen 13 mg/dL (9-16); Calcium 9.3 mg/dL (8.4-10.2); Carbon Dioxide 26 mmol/L (22-29); Chloride 108 mmol/L (96-108); Cholesterol 200 mg/dL (<200); Estimated Glomerular Filt Rate > 60; Glucose Random 96 mg/dL (60-115); HDL Cholesterol 49 mg/dL (>40); LDL Cholesterol Calculated 127 mg/dL (<100); Potassium 4.5 mmol/L (3.3-5.1); Sodium 141 mmol/L (135-145); Total Protein 7.2 g/dL (6.5-8.0); Triglycerides 122 mg/dL (<150)
== END 2024-12-24 07:57 | disposition home or self-care (01) ==
LOC: HO.HHCL 07:56
PROVIDERS: Visit Provider Internal Medicine Geriatric Medicine
DX: E78.00 Pure hypercholesterolemia, unspecified (principal); R74.01 Elevation of levels of liver transaminase levels
CPT/HCPCS: 36415; 80053; 80061

== ENCOUNTER 2025-05-18 08:36 | Outpatient (REF) | payer OTHER, SELFPAY ==
[2025-05-18 11:57] LABS: Anion Gap 11 (12-20); Blood Urea Nitrogen 18 mg/dL (9-16); Calcium 9.1 mg/dL (8.4-10.2); Carbon Dioxide 28 mmol/L (22-29); Chloride 105 mmol/L (96-108); Estimated Glomerular Filt Rate > 60; Potassium 4.1 mmol/L (3.3-5.1); Sodium 140 mmol/L (135-145)
== END 2025-05-18 08:37 | disposition home or self-care (01) ==
LOC: HO.HHCL 08:36
PROVIDERS: PCP Internal Medicine Geriatric Medicine; Visit Provider Internal Medicine Geriatric Medicine
DX: I10 Essential (primary) hypertension (principal)
CPT/HCPCS: 36415; 80048